=== PATIENT | female | born 2000 | race Caucasian/White ===

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

== ENCOUNTER 2020-01-21 18:54 | Emergency (ER) | payer BC ==
[2020-01-21] MEDS ORDERED: Albuterol/Ipratropium 3.0-0.5 MG/3 ML Neb Soln NEB ONE (19:42)
--- NOTE | 2020-01-21 20:00 | EDM.PDOC ---
ED HPI GENERAL MEDICAL PROBLEM - General Chief Complaint: Respiratory Problem Stated Complaint: ASTHMA ATTACK Time Seen by Provider: 01/21/20 19:36 Source of Information: Reports: Patient History Limitations: Reports: No Limitations - History of Present Illness INITIAL COMMENTS - FREE TEXT/NARRATIVE: Presents reporting an asthma attack. States that she is a lifelong asthma pat ient maintained on Xopenex rescue only. She ran out of her inhaler. Tonight she is short of breath and wheezy. Unknown trigger. - Related Data Allergies Allergy/AdvReac Type Severity Reaction Status Date / Time No Known Allergies Allergy Verified 01/21/20 19:30 Home Meds: Home Meds Levalbuterol Tartrate [Xopenex HFA Inh] 2 puff .XX Q4H PRN #1 inhaler 01/21/20 [Rx] Past Medical History HEENT History: Reports: Other (See Below) Other HEENT History: reoccuring ear infection Cardiovascular History: 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 Respiratory History: Reports: Asthma, Pneumonia, Recurrent Genitourinary History: 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 [employer] History: 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 Musculoskeletal History: 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 Neurological History: 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 Psychiatric History: Reports: Anxiety Endocrine/Metabolic History: 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 Hematologic History: 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 Immunologic History: 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 Oncologic (Cancer) History: 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 Dermatologic History: 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 - Infectious Disease History Infectious Disease History: Reports: Mononucleosis - Past Surgical History Head Surgeries/Procedures: 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 HEENT Surgical History: Reports: Tonsillectomy, Other (See Below) Other HEENT Surgeries/Procedures: "jaw deterioration" Musculoskeletal Surgical History: Reports: Other (See Below) Other Musculoskeletal Surgeries/Procedures:: fractured left ankle 1 yr ago; 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 ED EXAM, GENERAL - Physical Exam Exam: See Below Exam Limited By: No Limitations General Appearance: Alert, No Apparent Distress Ears: Normal External Exam Nose: Normal Inspection Throat/Mouth: Normal Inspection Head: Atraumatic, Normocephalic Neck: Normal Inspection Respiratory/Chest: Respiratory Distress (mild), Wheezing (scattered but moving air). No: No Accessory Muscle Use Cardiovascular: Normal Peripheral Pulses, Regular Rate, Rhythm Course - Vital Signs Last Recorded V/S: Last Vital Signs Temp 35.7 C L 01/21/20 19:26 Pulse 111 H 01/21/20 19:26 Resp 20 01/21/20 19:26 BP 140/94 H 01/21/20 19:26 Pulse Ox 99 01/21/20 19:26 - Orders/Labs/Meds Orders: Active Orders 24 hr Category Date Time Status RT Aerosol Therapy [RC] ASDIRECTED Care 01/21/20 19:42 Ordered Meds: Medications Discontinued Medications Generic Name Dose Route Start Last Admin Trade Name Freq PRN Reason Stop Dose Admin Albuterol/Ipratropium 3 ml 01/21/20 19:42 Duoneb 3.0-0.5 Mg/3 Ml NEB 01/21/20 19:43 ONETIME ONE Departure - Departure Time of Disposition: 20:36 Disposition: Home, Self-Care 01 Condition: Good Clinical Impression: Asthma attack Qualifiers: Asthma severity: mild Asthma persistence: intermittent Qualified Code(s): J45.21 - Mild intermittent asthma with (acute) exacerbation - Discharge Information *PRESCRIPTION DRUG MONITORING PROGRAM REVIEWED*: Not Applicable *COPY OF PRESCRIPTION DRUG MONITORING REPORT IN PATIENT GILBERTO: Not Applicable Referrals: PCP,None [Primary Care Provider] - [facility] [Outside] [facility] [Outside] Additional Instructions: The following information is given to patients seen in the emergency department who are being discharged to home. This information is to outline your options for follow-up care. We provide all patients seen in our emergency department with a follow-up referral. The need for follow-up, as well as the timing and circumstances, are variable depending upon the specifics of your emergency department visit. If you don't have a primary care physician on staff, we will provide you with a referral. We always advise you to contact your personal physician following an emergency department visit to inform them of the circumstance of the visit and for follow-up with them and/or the need for any referrals to a consulting specialist. The emergency department will also refer you to a specialist when appropriate. This referral assures that you have the opportunity for follow-up care with a specialist. All of these measure are taken in an effort to provide you with optimal care, which includes your follow-up. Under all circumstances we always encourage you to contact your private physician who remains a resource for coordinating your care. When calling for follow-up care, please make the office aware that this follow-up is from your recent emergency room visit. If for any reason you are refused follow-up, please contact the [facility] Emergency Department at and asked to speak to the emergency department charge nurse. 1. Xopenex 2 puffs every 4 hours as needed for wheezing or shortness of breath. 2. Follow up in primary care for medication refills and evaluation. 3. Return to the emergency department promptly for shortness of breath or wheezing not relieved by inhaler. Sepsis Event Note (ED) - Evaluation Sepsis Screening Result: No Definite Risk - Focused Exam Vital Signs: Vital Signs Temp Pulse Resp BP Pulse Ox 01/21/20 19:26 35.7 C L 111 H 20 140/94 H 99 - My Orders Last 24 Hours: My Active Orders 01/21/20 19:42 RT Aerosol Therapy [RC] ASDIRECTED - Assessment/Plan Last 24 Hours: My Active Orders 01/21/20 19:42 RT Aerosol Therapy [RC] ASDIRECTED
[2020-01-21 20:34] VITALS: PULSE 111
[2020-01-21 20:49] VITALS: BP 133/74
== END 2020-01-21 20:49 | disposition home or self-care (01) ==
LOC: MW.ED 18:54
DX: J45.21 Mild intermittent asthma with (acute) exacerbation (principal)
CPT/HCPCS: 94640; 99282; 99284-25; J7620-GY